=== PATIENT | male | born 1960 | race Caucasian/White ===

== ENCOUNTER 2025-06-15 23:06 | Emergency (ER) | payer OTHER, SELFPAY ==
[2025-06-15 23:12] VITALS: BP 208/120
[2025-06-15 23:27] LABS: Hematocrit 43.5 % (39.0-52.0); Hemoglobin 15.3 g/dL (13.0-18.0); Mean Corp Hgb Conc. 35.2 g/dL (33.0-37.0); Mean Corpuscular Volume 84.5 fL (80.0-94.0); Nucleated Red Blood Cells % 0 % (-); Platelet Count 284 10^3/uL (130-400); Red Cell Dist. Width 13.2 % (11.5-14.5)
[2025-06-15 23:48] LABS: ALT (SGPT) 27 U/L (0-50); AST (SGOT) 27 U/L (17-59); Albumin 5.1 g/dl (3.5-5.0); Alkaline Phosphatase 80 U/L (38-126); Blood Urea Nitrogen 35 mg/dl (9-20); Calcium 9.9 mg/dl (8.4-10.2); Carbon Dioxide 23 mmol/L (22-30); Chloride 107 mmol/L (98-107); Glucose 102 mg/dl (70-99); Potassium 4.7 mmol/L (3.5-5.1); Sodium 140 mmol/L (135-145); Total Protein 8.2 g/dl (6.3-8.2); eGFR 56.48
[2025-06-15 23:59] LABS: Troponin I 0.018 ng/ml
[2025-06-16 01:34] VITALS: BMI 27.5
[2025-06-16 01:35] VITALS: BP 184/102
--- NOTE | 2025-06-16 01:35 | ED.GENMED ---
History of Present Illness
General
Chief Complaint: Chest Pain
Source: patient
Time Seen by Provider: 06/16/25 01:23
History of Present Illness
History of Present Illness:
65-year-old male presents to the emergency room complaining of chest pain. Patient states that he began having chest pain at about 10:45 PM while doing a light workout. Patient has been experiencing chest pain with activity recently. A situation
where he might get chest pain was ascending the steps. It would typically go away after sitting on the bed for 5 minutes. However today's chest pain was not going away. He patient does state however after arriving to the emergency room and being
in the waiting room his pain did go away. However after walking to his ER room and going into the abdomen the chest pain has returned. He rates it a 6 out of 10. No associated shortness of breath or nausea. Of note the patient was recently
started on eyedrops for glaucoma.
Past History
Past History
ED Past Medical History: HTN and Other (gout); Negative IDDM or NIDDM
ED Past Surgical History: None
Social History
Tobacco: Non-smoker
Alcohol: Occasional
Drug: None
Personal:
Living: with family
Employment: Employed
Phy Exam
Physical Exam
Physical Exam:
General: Awake, Alert, Oriented X3. No acute distress.
Vitals: unremarkable
Head: Atraumatic
Eyes: Pupils equal, EOMI
Throat: Airway intact, no exudates
Neck: Trachea midline
Lungs: Clear and equal b/l
Heart: Regular rate, no murmurs
Abd: Soft, Nontender, No pulsatile mass
Neuro: Nonfocal
Skin: Warm, dry, no rash
Extremities: pulses equal b/l, no edema
Scores
Heart Score for Chest Pain Patients
STEMI patient?: No
History: Slightly or Non-Suspicious
ECG: Nonspecific Repolarization
Age: >45 - <65 years
Risk Factors: 1 or 2 Risk Factors
Troponin: </= Normal Limit
Heart Score for Chest Pain Patients: 3
Heart Score Risk: 2.5% MACE over next 6 weeks
Course
Orders/Labs/Results
Orders:
Orders
06/15/25 23:06
Electrocardiogram (*1) Urgent
Reason for Study: Chest Pain
EKG- Treatment ONCE
06/15/25 23:17
Cardiac Monitoring- Treatment ONCE
IV Insert/Care/Rem.- Treatment PRN
O2 Therapy [RESP] Urgent
Titrate/Wean O2 to maintain O2 sat greater than (%): 90
Special Instructions: Maintain sats >/=90%
Pulse Ox/spot Check [RESP] Urgent
Quantity: 1
Special Instructions: ON ROOM AIR
06/15/25 23:21
Complete Blood Count/With Diff Urgent
Comprehensive Metabolic Panel Urgent
Troponin I Urgent
06/16/25
Electrocardiogram (*1) Stat
Reason for Study: Chest Pain
06/16/25 01:30
EKG with chest pain [ECG as needed] As Directed
ECG as needed for:: Chest Pain
06/16/25 01:34
Aspirin Chewable [Low Strength Aspirin] 162 mg PO NOW STA
06/16/25 01:35
CR Chest - 2 Views Urgent
Comment:
Reason For Exam: chest pain
06/16/25 01:41
Nitroglycerin Sublingual [Nitrostat (Sublingual)] 0.4 mg SL NOW STA
06/16/25 02:32
Troponin I Urgent
Abnormal Lab Results
06/15/25
23:21
WBC 11.3 H 10^3/uL
(4.8-10.8)
Abs Immat Gran (auto) 0.1 H 10^3/uL
(0-0.05)
Absolute Lymphs (auto) 3.7 H 10^3/uL
(1.2-3.4)
Absolute Monos (auto) 1.1 H 10^3/uL
(0.1-0.6)
Monocytes % 9.4 H %
(1.7-9.3)
BUN 35 H mg/dl
(9-20)
Creatinine 1.4 H mg/dL
(0.7-1.3)
Glucose 102 H mg/dl
(70-99)
Albumin 5.1 H g/dl
(3.5-5.0)
06/15/25 23:21
06/15/25 23:21
Vital Signs
Initial and Last Documented VS:
Initial Vital Signs
Temp Pulse Resp BP Pulse Ox
97.8 F 84 24 208/120 96
06/15/25 23:12 06/15/25 23:12 06/15/25 23:12 06/15/25 23:12 06/15/25 23:12
Last Documented Vital Signs
Temp Pulse Resp BP Pulse Ox
97.8 F 54 13 164/96 97
06/15/25 23:12 06/16/25 05:30 06/16/25 05:30 06/16/25 03:00 06/16/25 05:09
MDM/Problems Addressed
Differential Diagnosis Includes:
Cyst STEMI, NSTEMI, acute coronary syndrome, chest wall pain
MDM/Problems Addressed:
Patient having chest pain when I saw him in the room. Repeat EKG obtained. Normal sinus rhythm at [address] changes. Looks actually bit better than EKG from triage. Troponin within normal limits x 2. Patient has waxing waning pain
here in the emergency room. We did give him a nitro but it sounds like his chest pain had actually gone away before even got the nitro. Overall the patient's story is a bit concerning but with 2 negative troponins and feels appropriate to
discharge him on the chest pain hotline. Patient understands return if he has any further chest pain or any concerns
*Pulse Oximetry
SaO2: 96
Oxygen Mode of Delivery: Room air
Patient hypoxic: no
*EKG
Interpreted by ED Provider?: Yes
Interpretation: abnormal
Heart Rate: 90
Rate: normal
Rhythm: sinus
Ischemia: ST depression (II, III, aVf)
*[employer] Interpretation
Rate: normal
Interpretation: normal
Rhythm: sinus
*Critical Care Note
Total Time (30-74mins, 75-104mins- exclusive of procedures): Not Applicable
ED Attending Note
-
Portions of this chart may have been created with voice recognition software.� Occasional wrong word or��sound alike� substitutions may have occurred due to the inherent limitations of voice recognition software.
Discharge Plan
Departure
Patient Disposition: Home (Routine Discharge)
Date of Disposition: 06/16/25
Time of Disposition: 05:13
Patient with high blood pressure during this ER visit?: Yes
Condition: Good
Discharge Problem:
Chest pain
Instructions: Chest Pain DCA Follow Up, BLOOD PRESSURE
Prescriptions:
No Action
Amlodipine
5 mg PO DAILY
METFORMIN HCl
1,000 mg PO BID
lisinopril-hydrochlorothiazide 1 EACH tablet
20 mg PO DAILY
indomethacin 50 MG capsule
50 mg PO TIDPRN PRN (Reason: pain. take with food.) Qty: 30 0RF
allopurinol 300 MG tablet
300 mg PO DAILY
indomethacin 50 MG capsule
50 mg PO TID Qty: 14 0RF
hydrocodone-acetaminophen [Vicodin] 1 EACH tablet
1 ea PO Q6HPRN PRN (Reason: pain) Qty: 7 0RF
oxycodone-acetaminophen 5 MG/325 MG tablet
1 tab PO Q4HPRN PRN (Reason: Kidney stone pain) Qty: 9 0RF
tamsulosin 0.4 MG capsule
0.4 mg PO DAILY Qty: 7 0RF
oxycodone-acetaminophen [Percocet] 5-325 mg Tablet
1 tab PO Q6HPRN PRN (Reason: pain) Qty: 12 0RF
tamsulosin [Flomax] 0.4 mg Capsule
0.4 mg PO DAILY Qty: 7 0RF
ondansetron 4 mg Tablet,Disintegrating
4 mg PO TIDPRN PRN (Reason: nausea/vomiting) Qty: 12 0RF
Referrals:
Tao Chan MD [Family Provider, Family Practice]
Interventions
Interventions:
*General Assessment Last Done: 06/16/25 01:34
*Neglect/Abuse Screening Last Done: 06/15/25 23:12
*ED COVID-19 Vaccine History Last Done: 06/16/25 01:34
*ED Influenza Vaccine History Last Done: 06/16/25 01:34
[facility] Fall Risk Assessment Tool Last Done: 06/16/25 01:47
*Risk Screen - Suicide (C-SSRS) Last Done: 06/15/25 23:12
*Nursing Disposition Last Done: 06/16/25 05:48
ED- Cardiac Assessment Last Done: 06/16/25 01:47
Discharge Date and Time
Discharge Date/Time: 06/16/25 05:54
Print Language: [email or web address]
[2025-06-16] MEDS: LOW STRENGTH ASPIRIN 162 MG PO (01:45)
[2025-06-16] MEDS: NITROSTAT (SUBLINGUAL) 0.4 MG SL (01:46)
[2025-06-16 01:50] VITALS: BP 143/91
[2025-06-16 02:00] VITALS: BP 159/97
--- NOTE | 2025-06-16 02:02 | EDRN ---
Patient reports feeling better and no chest pain, vss.
[2025-06-16 03:00] VITALS: BP 164/96
[2025-06-16 04:13] LABS: Troponin I 0.028 ng/ml
== END 2025-06-16 05:54 | disposition home or self-care (01) ==
LOC: EMR 23:06
PROVIDERS: Emergency Medicine; EMERGENCY PHYSICIAN Emergency Medicine; FAMILY PHYSICIAN Family Medicine
DX: R07.9 Chest pain, unspecified (principal); I10 Essential (primary) hypertension
CPT/HCPCS: 99284; 71046; 80053; 84484; 85025; 93005